=== PATIENT | female | born 1960 | race Caucasian/White ===

== ENCOUNTER 2018-05-07 20:32 | Inpatient (IN) | payer OTHER ==
[2018-05-07 21:32] VITALS: BMI 19.9
--- NOTE | 2018-05-07 21:55 | HP ---
"COWS - Scale Resting Pulse: 1= [place] 81-100 Sweatin=Flushed/Facial Moisture Restless Observation: 3= Extraneous Movement Pupil Size: 0= Normal to Room Light Bone or Joint Aches: 1= Mild Discomfort Runny Nose/ Eye Tearin= Runny Nose/Eyes GI Upset > 30mins: 2= Nausea/Diarrhea (No diarrhea. Having dry heaves) Tremor Observation: 2= Slight Tremor Visible Yawning Observation: 0= None Anxiety or Irritability: 2=Irritable/Anxious Goose Flesh Skin: 0=Smooth Skin COWS Score: 15 CIWA Score Nausea/Vomitin-Int. Nausea w/Dry Heave Muscle Tremors: 4-Moderate,w/Arms Extend Anxiety: 3 Agitation: 4-Moderately Restless Paroxysmal Sweats: 3 (Facial moisture) Orientation: 3-Disoriented Date>2 days Tacttile Disturbances: 0-None Auditory Disturbances: 0-None Visual Disturbances: 0-None Headache: 0-None Present CIWA-Ar Total Score: 21 - Admission Criteria [facility] Guidelines: Admission for Medically Managed Detox: Requires at least one of the followin. CIWA greater than 12 2. Seizures within the past 24 hours 3. Delirium tremens within the past 24 hours 4. Hallucinations within the past 24 hours 5. Acute intervention needed for co occurring medical disorder 6. Acute intervention needed for co occurring psychiatric disorder 7. Severe withdrawal that cannot be handled at a lower level of care (continued vomiting, continued diarrhea, abnormal vital signs) requiring intravenous medication and/or fluids 8. Admission ROS [facility] Chief Complaint: Here for heroin withdrawal. Allergies/Adverse Reactions: Allergies Allergy/AdvReac Type Severity Reaction Status Date / Time kiwi Allergy Severe Itching Verified 05/07/18 21:29 No Known Drug Allergies Allergy Verified 05/07/18 21:29 History of Present Illness: Heroin use began at age 35. States had an overdose 1 month ago. Cocaine use use began at age 35. Alcohol use began at age 18. Nicotine use began at age 18. Denies hx seizures or blackouts. 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 (See H&P) Hx asthma. States no exacerbation in years. Denies other significant PMH. States has had multiple treatment attempts. Search Terms: Leola Aguilera, 1960 Search Date: 05/07/2018 09:53:30 PM The Drug Utilization Report below displays all of the controlled substance prescriptions, if any, that your patient has filled in the last twelve months. The information displayed on this report is compiled from pharmacy submissions to the Department, and accurately reflects the information as submitted by the pharmacies. This report was requested by: Kaleigh Roberts | Reference #: [id number] There are no results for the search terms that you entered. Exam Limitations: No Limitations - Ebola screening Have you traveled outside of the country in the last 21 days: No Have you had contact with anyone from an Ebola affected area: No Have you been sick,other than usual withdrawal symptoms: No Do you have a fever: No - Review of Systems Constitutional: Diaphoresis EENT: reports: Nose Congestion (r/t withdrawal), Dental Problems (Upper and lower dentures) Respiratory: reports: No Symptoms reported, Other (Hx asthma. No recent exacerbation) Cardiac: reports: No Symptoms Reported GI: reports: Nausea (w/ dry heaves) : reports: No Symptoms Reported Musculoskeletal: reports: Muscle Weakness ((R) side), Other (Whole (R) side achy and some times sharp. Pain is '5'.) Integumentary: reports: No Symptoms Reported Neuro: reports: Tremors Endocrine: reports: No Symptoms Reported Hematology: reports: No Symptoms Reported Psychiatric: reports: Judgement Intact, Mood/Affect Appropiate, Agitated, Anxious, Depressed ( Search Terms: Leola Aguilera, 1960 Search Date: 2017 09:53:30 PM The Drug Utilization Report below displays all of the controlled substance prescriptions, if any, that your patient has filled in the last twelve months. The information displayed on this report is compiled from pharmacy submissions to the Department, and accurately reflects the information as submitted by the pharmacies. This report was requested by: Kaleigh Roberts | Reference #: [id number] Denies thoughts of harming self or others), Disorientated (Off date by 5 days) Patient History - Patient Medical History Hx Asthma: Yes (No recent exacerbation in over a year) Hx Chronic Obstructive Pulmonary Disease (COPD): Yes Hx Cardiac Disorders: No Hx Hypertension: No Hx Hypercholesterolemia: No Hx Pacemaker: No HX Cerebrovascular Accident: No Hx Seizures: No Hx Dementia: No Hx Diabetes: No Hx Gastrointestinal Disorders: No Hx Liver Disease: No Hx Genitourinary Disorders: No Hx Sexually Transmitted Disorders: No Hx Renal Disease (ESRD): No Hx Thyroid Disease: No Hx Human Immunodeficiency Virus (HIV): No (neg) Hx Hepatitis C: No Hx Depression: Yes Hx Suicide Attempt: Yes (Tried to overdose 20 yrs ago.) Hx Schizophrenia: No - Patient Surgical History Past Surgical History: Yes Hx Neurologic Surgery: Yes (NECK SX IN 10/10 [facility]) Hx Appendectomy: Yes Other Surgical History: L ovarian cyst sx Anesthesia Reaction: No - PPD History Previous Implant?: Yes Documented Results: Negative w/o proof Implanted On Prior [facility] Admission?: No PPD to be Administered?: Yes - Reproductive History Patient is a Female of Child Bearing Age (11 -55 yrs old): Yes Last Menstrual Period: 11/24/15 (approx) Patient : No (Not sexually active ) - Smoking Cessation Smoking history: Current every day smoker Have you smoked in the past 12 months: Yes Aproximately how many cigarettes per day: 20 Hx Chewing Tobacco Use: No Initiated information on smoking cessation: Yes 'Breaking Loose' booklet given: 05/07/18 - Substance & Tx. History Hx Alcohol Use: Yes Hx Substance Use: Yes Substance Use Type: Alcohol, Cocaine, Heroin, Marijuana Hx Substance Use Treatment: Yes (detox, rehab, past hx [facility]) - Substances Abused Heroin Route: Inhalation Frequency: Daily Amount used: 5 BAGS Age of first use: 35 Date of Last Use: 05/07/18 Alcohol Route: Oral Frequency: Daily Amount used: 1/2 [place] Age of first use: 18 Date of Last Use: 05/06/18 Crack Route: Smoking Frequency: Daily Amount used: $100 Age of first use: 35 Date of Last Use: 05/07/18 Admission Physical Exam BHS - Vital Signs Vital Signs: Vital Signs - 24 hr 05/07/18 21:29 Temperature 97.5 F L Pulse Rate 91 H Respiratory 20 Rate Blood Pressure 105/70 - Physical General Appearance: Yes: Moderate Distress, Tremorous, Sweating, Anxious HEENTM: Yes: EOMI, Hearing grossly Normal, Normocephalic, LARISSA (Pupils = 3 mm), Pharynx Normal, Rhinorrhea Respiratory: Yes: Chest Non-Tender, Lungs Clear Neck: Yes: No masses,lesions,Nodules, Supple Breast: Yes: Breast Exam Deferred Cardiology: Yes: Regular Rhythm, Regular Rate, S1, S2 Abdominal: Yes: Non Tender, Flat, Soft, Increased Bowel Sounds Genitourinary: Yes: Within Normal Limits Back: Yes: Normal Inspection Musculoskeletal: Yes: Joint Stiffness ((R) shoulder, elbow, wrist, fingers. Limited ROM (R) shoulder), Other (Unsteady gait.) Extremities: Yes: Normal Capillary Refill, Tremors (of hands when extended), Other ((R) side paresis and paralysis of arm w/artial contractures of elbow and fingers. Paresis (R) leg. 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 See H & P. (2) Alcohol dependence with uncomplicated withdrawal Current Visit: Yes Status: Acute (3) Opioid dependence with withdrawal Current Visit: Yes Status: Acute (4) Personal history of asthma Current Visit: Yes Status: Chronic (5) Nicotine dependence, uncomplicated Current Visit: Yes Status: Chronic Qualifiers: Nicotine product type: cigarettes Qualified Code(s): F17.210 - Nicotine dependence, cigarettes, uncomplicated (6) Cocaine dependence, uncomplicated Current Visit: Yes Status: Chronic Cleared for Admission [facility] - Detox or Rehab [facility] Level of Care: Medically Managed Detox Regimen/Protocol: Methadone/Librium [facility] Breath Alcohol Content Breath Alcohol Content: 0 Urine Pregancy Test - Result Urine Test Results: Negative- NO Line Present Urine Drug Screen - Results Drug Screen Negative: Yes Urine Drug Screen Results: THC-Marijuana, PAULA-Cocaine, OPI-Opiates, MTD- Methadone, OXY-Oxycodone, FEN-Fentanyl"
[2018-05-07] MEDS ORDERED: IBUPROFEN 400 MG TABLET (FP) PO PRN (22:30)
[2018-05-07] MEDS ORDERED: MAG HYDROX/AL HYDROX/SIMETH 30 ML UNIT-DOSE CUP PO PRN (22:30)
[2018-05-07] MEDS ORDERED: MAGNESIUM CITRATE 300 ML BOTTLE PO PRN (22:30)
[2018-05-07] MEDS ORDERED: MAGNESIUM HYDROX 2400MG/30ML ORAL SUSPENSION 30 ML CUP PO PRN (22:30)
[2018-05-07] MEDS ORDERED: MENTHOL/PHENOL 1 EACH UD MM PRN (22:30)
[2018-05-07] MEDS ORDERED: ACETAMINOPHEN 325 MG TABLET (FP) PO PRN (22:30)
[2018-05-07] MEDS ORDERED: chlordiazePOXIDE HCL 25 MG CAPSULE PO PRN (22:30)
[2018-05-07] MEDS ORDERED: NICOTINE POLACRILEX 2 MG GUM BC PRN (22:30)
[2018-05-07] MEDS ORDERED: LOPERAMIDE HCL 2 MG CAPSULE PO PRN (22:30)
[2018-05-07] MEDS ORDERED: METHADONE HCL 10 MG TABLET (FOR DETOX USE ONLY) PO ONE ×2 (23:00→23:15)
[2018-05-07] MEDS ORDERED: chlordiazePOXIDE HCL 25 MG CAPSULE PO SCH (23:00)
[2018-05-07] MEDS ORDERED: chlordiazePOXIDE 5 MG CAPSULE PO PRN (23:01)
[2018-05-08 00:51] LABS: URINE APPEARANCE CLEAR; URINE BILIRUBIN NEGATIVE (<2.0 mg/dL); URINE COLOR YELLOW; URINE GLUCOSE (UA) NEGATIVE (NEGATIVE); URINE KETONE NEGATIVE (NEGATIVE); URINE LEUK ESTERASE TRACE (NEGATIVE); URINE NITRITE NEGATIVE (NEGATIVE); URINE PROTEIN 1+ (NEGATIVE)
[2018-05-08 02:31] LABS: EPI CELLS RARE /HPF (FEW); URINE HYALINE CAST 14 /lpf; URINE MUCUS MANY
[2018-05-08] MEDS: chlordiazePOXIDE HCL 25 MG CAPSULE PO SCH ×3 (05:56→17:53)
[2018-05-08] MEDS ORDERED: METHADONE HCL 10 MG TABLET (FOR DETOX USE ONLY) PO SCH (10:00)
[2018-05-08 10:10] LABS: MCH 28.5 pg (25.7-33.7); MCHC 31.8 g/dl (32.0-36.0); MEAN CELL VOLUME 89.7 fl (80-96); MEAN PLT VOLUME 10.4 fl (7.5-11.1); PLATELET COUNT 189 K/MM3 (134-434); RBC 4.57 M/mm3 (3.60-5.2); RDW 14.2 % (11.6-15.6); WHITE BLOOD COUNT 7.5 K/mm3 (4.0-10.0)
[2018-05-08] MEDS: PRENATAL VITAMINS W/ FOLIC ACID TABLET (FP) PO SCH (10:25)
[2018-05-08] MEDS: NICOTINE 21 MG/24 HOURS TOPICAL PATCH TD SCH (10:26)
[2018-05-08 10:37] LABS: ALK PHOS 86 U/L (45-117); ANION GAP 8 MMOL/L (8-16); BILIRUBIN,TOTAL 0.4 mg/dL (0.2-1); BLOOD UREA NITROGEN 18 mg/dL (7-18); CALCIUM 8.7 mg/dL (8.5-10.1); CHLORIDE 105 mmol/L (98-107); CO2 27 mmol/L (21-32); CREATININE 0.6 mg/dL (0.55-1.3); GLUCOSE,RANDOM 77 mg/dL (74-106); POTASSIUM 4.4 mmol/L (3.5-5.1); SGOT/AST 19 U/L (15-37); SGPT/ALT 16 U/L (13-61); SODIUM 140 mmol/L (136-145); TOT PROT 8.2 g/dl (6.4-8.2)
--- NOTE | 2018-05-08 11:37 | EKG ---
Test Reason : Blood Pressure : / mmHG Vent. Rate : 068 BPM Atrial Rate : 068 BPM P-R Int : 126 ms QRS Dur : 072 ms QT Int : 386 ms P-R-T Axes : 044 070 051 degrees QTc Int : 410 ms NORMAL SINUS RHYTHM NORMAL ECG NO PREVIOUS ECGS AVAILABLE Confirmed by STEFAN BAEZ, ALLEN ([id number]) on 05/08/2018 11:36:32 AM Referred By: JEANNINE FREEDMAN Confirmed By:ALLEN AVILES MD
--- NOTE | 2018-05-08 12:12 | PN ---
S CIWA - CIWA Score Nausea/Vomitin-No Nausea/No Vomiting Muscle Tremors: 4-Moderate,w/Arms Extend Anxiety: 3 Agitation: 3 Paroxysmal Sweats: 3 Orientation: 0-Oriented Tacttile Disturbances: 0-None Auditory Disturbances: 0-None Visual Disturbances: 0-None Headache: 0-None Present CIWA-Ar Total Score: 13 BHS COWS - Scale Resting Pulse: 1= [place] 81-100 Sweatin=Flushed/Facial Moisture Restless Observation: 1= Difficult to Sit Still Pupil Size: 0= Normal to Room Light Bone or Joint Aches: 2= Severe Diffuse Aches Runny Nose/ Eye Tearin= Nasal Congestion GI Upset > 30mins: 1= Stomach Cramp Tremor Observation of Outstretched Hands: 2= Slight Tremor Visible Yawning Observation: 2= >3x During Session Anxiety or Irritability: 2=Irritable/Anxious Goose Flesh Skin: 0=Smooth Skin COWS Score: 14 BHS Progress Note (SOAP) Subjective: agitation anxiety sweats shakes interrupted sleep body aches interrupted sleep Objective: 05/08/18 12:15 Vital Signs Temperature 98.2 F 05/08/18 10:06 Pulse Rate 93 H 05/08/18 10:06 Respiratory Rate 16 05/08/18 10:06 Blood Pressure 103/60 05/08/18 10:06 O2 Sat by Pulse Oximetry (%) Laboratory Tests 05/07/18 05/08/18 05/08/18 23:16 07:00 07:00 WBC 7.5 RBC 4.57 Hgb 13.0 Hct 41.0 MCV 89.7 MCH 28.5 MCHC 31.8 L RDW 14.2 Plt Count 189 MPV 10.4 Sodium Potassium Chloride Carbon Dioxide Anion Gap BUN Creatinine Creat Clearance w eGFR Random Glucose Calcium Total Bilirubin AST ALT Alkaline Phosphatase Total Protein Albumin Urine Color Yellow Urine Appearance Clear Urine pH 5.0 Ur Specific [place] 1.026 Urine Protein 1+ H Urine Glucose (UA) Negative Urine Ketones Negative Urine Blood 1+ H Urine Nitrite Negative Urine Bilirubin Negative Urine Urobilinogen 2.0 H Ur Leukocyte Esterase Trace Urine WBC (Auto) 3 Urine RBC (Auto) 3 Ur Epithelial Cells Rare Hyaline Casts 14 Urine Mucus Many HIV 1&2 Antibody Screen Negative HIV P24 Antigen Negative 05/08/18 07:00 WBC RBC Hgb Hct MCV MCH MCHC RDW Plt Count MPV Sodium 140 Potassium 4.4 Chloride 105 Carbon Dioxide 27 Anion Gap 8 BUN 18 Creatinine 0.6 Creat Clearance w eGFR > 60 Random Glucose 77 Calcium 8.7 Total Bilirubin 0.4 AST 19 ALT 16 Alkaline Phosphatase 86 Total Protein 8.2 Albumin 4.0 Urine Color Urine Appearance Urine pH Ur Specific [place] Urine Protein Urine Glucose (UA) Urine Ketones Urine Blood Urine Nitrite Urine Bilirubin Urine Urobilinogen Ur Leukocyte Esterase Urine WBC (Auto) Urine RBC (Auto) Ur Epithelial Cells Hyaline Casts Urine Mucus HIV 1&2 Antibody Screen HIV P24 Antigen aaox3 ambulating no acute distress Assessment: 05/08/18 12:15 withdrawal sx Plan: continue detox increase fluids cane ordered
[2018-05-08] MEDS: THIAMINE HCL 100 MG TABLET (FP) PO SCH (22:10)
[2018-05-08] MEDS: chlordiazePOXIDE 5 MG CAPSULE PO SCH (22:10)
[2018-05-08] MEDS: CYCLOBENZAPRINE HCL 10 MG TABLET (FP) PO PRN (22:10)
[2018-05-08] MEDS: MELATONIN 5 MG TABLETS PO PRN (22:11)
[2018-05-08] MEDS ORDERED: chlordiazePOXIDE HCL 25 MG CAPSULE PO SCH (23:00)
[2018-05-09] MEDS: chlordiazePOXIDE 5 MG CAPSULE PO SCH ×4 (06:19→23:23)
[2018-05-09] MEDS: CYCLOBENZAPRINE HCL 10 MG TABLET (FP) PO PRN (06:22)
[2018-05-09] MEDS: PRENATAL VITAMINS W/ FOLIC ACID TABLET (FP) PO SCH (10:59)
[2018-05-09] MEDS: METHADONE HCL 5 MG TABLET (FOR DETOX USE ONLY) PO SCH (10:59)
[2018-05-09] MEDS: NICOTINE 21 MG/24 HOURS TOPICAL PATCH TD SCH (11:00)
--- NOTE | 2018-05-09 11:58 | PN ---
[facility] CIWA - CIWA Score Nausea/Vomitin-No Nausea/No Vomiting Muscle Tremors: 3 Anxiety: 3 Agitation: 3 Paroxysmal Sweats: 2 Orientation: 0-Oriented Tacttile Disturbances: 0-None Auditory Disturbances: 0-None Visual Disturbances: 0-None Headache: 0-None Present CIWA-Ar Total Score: 11 BHS COWS - Scale Resting Pulse: 0= [place] 80 or Below Sweatin=Flushed/Facial Moisture Restless Observation: 1= Difficult to Sit Still Pupil Size: 0= Normal to Room Light Bone or Joint Aches: 1= Mild Discomfort Runny Nose/ Eye Tearin= Nasal Congestion GI Upset > 30mins: 0= None Tremor Observation of Outstretched Hands: 2= Slight Tremor Visible Yawning Observation: 2= >3x During Session Anxiety or Irritability: 1=Feels Anxious/Irritable Goose Flesh Skin: 0=Smooth Skin COWS Score: 10 S Progress Note (SOAP) Subjective: agitation anxiety sweats interrupted sleep Objective: 05/09/18 11:58 Vital Signs Temperature 98.8 F 05/09/18 09:38 Pulse Rate 90 05/09/18 09:38 Respiratory Rate 18 05/09/18 09:38 Blood Pressure 128/92 05/09/18 09:38 O2 Sat by Pulse Oximetry (%) Laboratory Tests 05/07/18 05/08/18 05/08/18 23:16 07:00 07:00 WBC 7.5 RBC 4.57 Hgb 13.0 Hct 41.0 MCV 89.7 MCH 28.5 MCHC 31.8 L RDW 14.2 Plt Count 189 MPV 10.4 Sodium Potassium Chloride Carbon Dioxide Anion Gap BUN Creatinine Creat Clearance w eGFR Random Glucose Calcium Total Bilirubin AST ALT Alkaline Phosphatase Total Protein Albumin Urine Color Yellow Urine Appearance Clear Urine pH 5.0 Ur Specific [place] 1.026 Urine Protein 1+ H Urine Glucose (UA) Negative Urine Ketones Negative Urine Blood 1+ H Urine Nitrite Negative Urine Bilirubin Negative Urine Urobilinogen 2.0 H Ur Leukocyte Esterase Trace Urine WBC (Auto) 3 Urine RBC (Auto) 3 Ur Epithelial Cells Rare Hyaline Casts 14 Urine Mucus Many RPR Titer HIV 1&2 Antibody Screen Negative HIV P24 Antigen Negative 05/08/18 05/08/18 07:00 07:00 WBC RBC Hgb Hct MCV MCH MCHC RDW Plt Count MPV Sodium 140 Potassium 4.4 Chloride 105 Carbon Dioxide 27 Anion Gap 8 BUN 18 Creatinine 0.6 Creat Clearance w eGFR > 60 Random Glucose 77 Calcium 8.7 Total Bilirubin 0.4 AST 19 ALT 16 Alkaline Phosphatase 86 Total Protein 8.2 Albumin 4.0 Urine Color Urine Appearance Urine pH Ur Specific [place] Urine Protein Urine Glucose (UA) Urine Ketones Urine Blood Urine Nitrite Urine Bilirubin Urine Urobilinogen Ur Leukocyte Esterase Urine WBC (Auto) Urine RBC (Auto) Ur Epithelial Cells Hyaline Casts Urine Mucus RPR Titer Nonreactive HIV 1&2 Antibody Screen HIV P24 Antigen aaox3 ambulating no acute distress Assessment: 05/09/18 11:59 withdrawals sx Plan: continue detox increase fluids
[2018-05-09] MEDS ORDERED: chlordiazePOXIDE 5 MG CAPSULE PO SCH (23:00)
[2018-05-09] MEDS: THIAMINE HCL 100 MG TABLET (FP) PO SCH (23:23)
[2018-05-10] MEDS: chlordiazePOXIDE 5 MG CAPSULE PO SCH ×4 (06:13→22:53)
[2018-05-10] MEDS: CYCLOBENZAPRINE HCL 10 MG TABLET (FP) PO PRN ×3 (06:15→22:53)
[2018-05-10] MEDS: PRENATAL VITAMINS W/ FOLIC ACID TABLET (FP) PO SCH (10:38)
[2018-05-10] MEDS: METHADONE HCL 5 MG TABLET (FOR DETOX USE ONLY) PO SCH (10:38)
[2018-05-10] MEDS: NICOTINE 21 MG/24 HOURS TOPICAL PATCH TD SCH (10:39)
--- NOTE | 2018-05-10 12:09 | PN ---
BHS Progress Note (SOAP) Subjective: sweats feeling better Objective: 05/10/18 12:12 Vital Signs Temperature 97.7 F 05/10/18 09:43 Pulse Rate 77 05/10/18 09:43 Respiratory Rate 18 05/10/18 09:43 Blood Pressure 102/59 L 05/10/18 09:43 O2 Sat by Pulse Oximetry (%) aaox3 ambulating no acute distress Assessment: 05/10/18 12:12 mild withdrawal sx Plan: increase fluids continue detox
[2018-05-10] MEDS: THIAMINE HCL 100 MG TABLET (FP) PO SCH (22:53)
[2018-05-10] MEDS ORDERED: chlordiazePOXIDE HCL 10 MG CAPSULE PO SCH (23:00)
[2018-05-11] MEDS: chlordiazePOXIDE 5 MG CAPSULE PO SCH ×3 (05:26→18:13)
[2018-05-11] MEDS ORDERED: METHADONE HCL 10 MG TABLET (FOR DETOX USE ONLY) PO SCH (10:00)
[2018-05-11] MEDS: PRENATAL VITAMINS W/ FOLIC ACID TABLET (FP) PO SCH (10:48)
[2018-05-11] MEDS: NICOTINE 21 MG/24 HOURS TOPICAL PATCH TD SCH (10:49)
[2018-05-11] MEDS: CYCLOBENZAPRINE HCL 10 MG TABLET (FP) PO PRN ×2 (10:52→22:29)
--- NOTE | 2018-05-11 12:49 | PN ---
BHS Progress Note (SOAP) Subjective: Interrupted sleep, mild sweats and tremors Objective: 05/11/18 12:48 Vital Signs 05/11/18 05/11/18 06:00 09:40 Temperature 97.9 F 97.9 F Pulse Rate 77 85 Respiratory 16 18 Rate Blood Pressure 140/85 134/87 Laboratory Last Values WBC 7.5 K/mm3 (4.0-10.0) 05/08/18 07:00 RBC 4.57 M/mm3 (3.60-5.2) 05/08/18 07:00 Hgb 13.0 GM/dL (10.7-15.3) 05/08/18 07:00 Hct 41.0 % (32.4-45.2) 05/08/18 07:00 MCV 89.7 fl (80-96) 05/08/18 07:00 MCH 28.5 pg (25.7-33.7) 05/08/18 07:00 MCHC 31.8 g/dl (32.0-36.0) L 05/08/18 07:00 RDW 14.2 % (11.6-15.6) 05/08/18 07:00 Plt Count 189 K/MM3 (134-434) 05/08/18 07:00 MPV 10.4 fl (7.5-11.1) 05/08/18 07:00 Sodium 140 mmol/L (136-145) 05/08/18 07:00 Potassium 4.4 mmol/L (3.5-5.1) 05/08/18 07:00 Chloride 105 mmol/L (98-107) 05/08/18 07:00 Carbon Dioxide 27 mmol/L (21-32) 05/08/18 07:00 Anion Gap 8 MMOL/L (8-16) 05/08/18 07:00 BUN 18 mg/dL (7-18) 05/08/18 07:00 Creatinine 0.6 mg/dL (0.55-1.3) 05/08/18 07:00 Creat Clearance w eGFR > 60 (>60) 05/08/18 07:00 Random Glucose 77 mg/dL (74-106) 05/08/18 07:00 Calcium 8.7 mg/dL (8.5-10.1) 05/08/18 07:00 Total Bilirubin 0.4 mg/dL (0.2-1) 05/08/18 07:00 AST 19 U/L (15-37) 05/08/18 07:00 ALT 16 U/L (13-61) 05/08/18 07:00 Alkaline Phosphatase 86 U/L (45-117) 05/08/18 07:00 Total Protein 8.2 g/dl (6.4-8.2) 05/08/18 07:00 Albumin 4.0 g/dl (3.4-5.0) 05/08/18 07:00 Urine Color Yellow 05/07/18 23:16 Urine Appearance Clear 05/07/18 23:16 Urine pH 5.0 (5.0-8.0) 05/07/18 23:16 Ur Specific [place] 1.026 (1.010-1.035) 05/07/18 23:16 Urine Protein 1+ (NEGATIVE) H 05/07/18 23:16 Urine Glucose (UA) Negative (NEGATIVE) 05/07/18 23:16 Urine Ketones Negative (NEGATIVE) 05/07/18 23:16 Urine Blood 1+ (NEGATIVE) H 05/07/18 23:16 Urine Nitrite Negative (NEGATIVE) 05/07/18 23:16 Urine Bilirubin Negative (<2.0 mg/dL) 05/07/18 23:16 Urine Urobilinogen 2.0 mg/dL (0.2-1.0) H 05/07/18 23:16 Ur Leukocyte Esterase Trace (NEGATIVE) 05/07/18 23:16 Urine WBC (Auto) 3 /hpf (3-5) 05/07/18 23:16 Urine RBC (Auto) 3 /hpf (0-3) 05/07/18 23:16 Ur Epithelial Cells Rare /HPF (FEW) 05/07/18 23:16 Hyaline Casts 14 /lpf 05/07/18 23:16 Urine Mucus Many 05/07/18 23:16 RPR Titer Nonreactive (NONREACTIVE) 05/08/18 07:00 HIV 1&2 Antibody Screen Negative 05/08/18 07:00 HIV P24 Antigen Negative 05/08/18 07:00 Labs noted Assessment: 05/11/18 12:49 Withdrawal sx Plan: Continue detox
[2018-05-11] MEDS: THIAMINE HCL 100 MG TABLET (FP) PO SCH (22:28)
[2018-05-11] MEDS: MELATONIN 5 MG TABLETS PO PRN (22:29)
[2018-05-12] MEDS: CYCLOBENZAPRINE HCL 10 MG TABLET (FP) PO PRN (05:54)
[2018-05-12] MEDS ORDERED: METHADONE HCL 5 MG TABLET (FOR DETOX USE ONLY) PO SCH (06:00)
--- NOTE | 2018-05-12 09:23 | DS ---
[facility] Detox Discharge Summary Admission Date: 05/07/18 Discharge Date: 05/12/18 - History Present History: Alcohol Dependence, Opioid Dependence Additional Comments: 57 years old female admitted on 05/07/18 for alcohol and opiate withdrawal sx completed detox regimen tolerated well denies alcohol withdrawal denies opiate withdrawal sx alert oriented x 3 tolerated well aftercare [facility] Physical Exam Results Vital Signs: Vital Signs Temperature 97.7 F 05/12/18 06:00 Pulse Rate 88 05/12/18 06:00 Respiratory Rate 16 05/12/18 06:00 Blood Pressure 112/60 05/12/18 06:00 O2 Sat by Pulse Oximetry (%) Pertinent Admission Physical Exam Findings: alcohol and opiate withdrawal sx Vital Signs Temperature 97.7 F 05/12/18 06:00 Pulse Rate 88 05/12/18 06:00 Respiratory Rate 16 05/12/18 06:00 Blood Pressure 112/60 05/12/18 06:00 O2 Sat by Pulse Oximetry (%) Laboratory Last Values WBC 7.5 K/mm3 (4.0-10.0) 05/08/18 07:00 RBC 4.57 M/mm3 (3.60-5.2) 05/08/18 07:00 Hgb 13.0 GM/dL (10.7-15.3) 05/08/18 07:00 Hct 41.0 % (32.4-45.2) 05/08/18 07:00 MCV 89.7 fl (80-96) 05/08/18 07:00 MCH 28.5 pg (25.7-33.7) 05/08/18 07:00 MCHC 31.8 g/dl (32.0-36.0) L 05/08/18 07:00 RDW 14.2 % (11.6-15.6) 05/08/18 07:00 Plt Count 189 K/MM3 (134-434) 05/08/18 07:00 MPV 10.4 fl (7.5-11.1) 05/08/18 07:00 Sodium 140 mmol/L (136-145) 05/08/18 07:00 Potassium 4.4 mmol/L (3.5-5.1) 05/08/18 07:00 Chloride 105 mmol/L (98-107) 05/08/18 07:00 Carbon Dioxide 27 mmol/L (21-32) 05/08/18 07:00 Anion Gap 8 MMOL/L (8-16) 05/08/18 07:00 BUN 18 mg/dL (7-18) 05/08/18 07:00 Creatinine 0.6 mg/dL (0.55-1.3) 05/08/18 07:00 Creat Clearance w eGFR > 60 (>60) 05/08/18 07:00 Random Glucose 77 mg/dL (74-106) 05/08/18 07:00 Calcium 8.7 mg/dL (8.5-10.1) 05/08/18 07:00 Total Bilirubin 0.4 mg/dL (0.2-1) 05/08/18 07:00 AST 19 U/L (15-37) 05/08/18 07:00 ALT 16 U/L (13-61) 05/08/18 07:00 Alkaline Phosphatase 86 U/L (45-117) 05/08/18 07:00 Total Protein 8.2 g/dl (6.4-8.2) 05/08/18 07:00 Albumin 4.0 g/dl (3.4-5.0) 05/08/18 07:00 Urine Color Yellow 05/07/18 23:16 Urine Appearance Clear 05/07/18 23:16 Urine pH 5.0 (5.0-8.0) 05/07/18 23:16 Ur Specific [place] 1.026 (1.010-1.035) 05/07/18 23:16 Urine Protein 1+ (NEGATIVE) H 05/07/18 23:16 Urine Glucose (UA) Negative (NEGATIVE) 05/07/18 23:16 Urine Ketones Negative (NEGATIVE) 05/07/18 23:16 Urine Blood 1+ (NEGATIVE) H 05/07/18 23:16 Urine Nitrite Negative (NEGATIVE) 05/07/18 23:16 Urine Bilirubin Negative (<2.0 mg/dL) 05/07/18 23:16 Urine Urobilinogen 2.0 mg/dL (0.2-1.0) H 05/07/18 23:16 Ur Leukocyte Esterase Trace (NEGATIVE) 05/07/18 23:16 Urine WBC (Auto) 3 /hpf (3-5) 05/07/18 23:16 Urine RBC (Auto) 3 /hpf (0-3) 05/07/18 23:16 Ur Epithelial Cells Rare /HPF (FEW) 05/07/18 23:16 Hyaline Casts 14 /lpf 05/07/18 23:16 Urine Mucus Many 05/07/18 23:16 RPR Titer Nonreactive (NONREACTIVE) 05/08/18 07:00 HIV 1&2 Antibody Screen Negative 05/08/18 07:00 HIV P24 Antigen Negative 05/08/18 07:00 lab noted - Treatment Hospital Course: Detox Protocol Followed, Detoxed Safely, Responded well, Discharged Condition Good, Rehab Referral Accepted Patient has Accepted a Rehab Referral to: [facility] - Diagnosis (1) Alcohol dependence with uncomplicated withdrawal Current Visit: Yes Status: Acute (2) Nicotine dependence, uncomplicated Current Visit: Yes Status: Acute Qualifiers: Nicotine product type: cigarettes Qualified Code(s): F17.210 - Nicotine dependence, cigarettes, uncomplicated (3) Opioid dependence with withdrawal Current Visit: Yes Status: Acute - AMA Did Patient Leave Against Medical Advice: No
[2018-05-12 10:21] VITALS: BP 127/83; PULSE 87; TEMP 98
[2018-05-12] MEDS: PRENATAL VITAMINS W/ FOLIC ACID TABLET (FP) PO SCH (10:31)
[2018-05-12] MEDS: NICOTINE 21 MG/24 HOURS TOPICAL PATCH TD SCH (10:31)
== END 2018-05-12 12:33 | disposition other institution (70) | DRG 773 ==
LOC: YASAS 20:32 → Y6N 22:44
PROC: HZ2ZZZZ Detoxification Services for Substance Abuse Treatment (ICD-10-PCS; principal; 2018-05-07)
DX: F11.23 Opioid dependence with withdrawal (principal); F10.230 Alcohol dependence with withdrawal, uncomplicated; F14.20 Cocaine dependence, uncomplicated; F17.210 Nicotine dependence, cigarettes, uncomplicated; M24.50 Contracture, unspecified joint; A52.17 General paresis; Z87.09 Personal history of other diseases of the respiratory system
CPT/HCPCS: 36415; 80053; 81003; 81015; 85027; 86593; 87389; 93005; 93010

== ENCOUNTER 2018-05-12 12:52 | Inpatient (IN) | payer OTHER ==
--- NOTE | 2018-05-12 09:43 | HP ---
RAKAN BAEZ Rehab Assess/Revision - Admission History Admitted to Rehab from: [place] [facility] [place] Date of Admission to Rehab: 05/12/18 - Findings Detox History & Physical reviewed: Yes Concur with findings: Yes Comments/Additional Findings: transferred from detox to rehab admission as per protocol Inpatient Rehab Admission - Initial Determination Are CD services needed?: Yes Free of communicable disease: Yes Not in need of hospitalization: Yes - Rehab Admission Criteria Previous failed treatment: Yes Poor recovery environment: Yes Comorbidities: Yes Lacks judgement: No Patient is meeting Inpatient Rehab admission criteria:: Yes
[~2018-05-12 12:52] MED LIST: ACETAMINOPHEN 325 MG TABLET (FP) PO PRN; IBUPROFEN 400 MG TABLET (FP) PO PRN; LOPERAMIDE HCL 2 MG CAPSULE PO PRN; MAG HYDROX/AL HYDROX/SIMETH 30 ML UNIT-DOSE CUP PO PRN; MAGNESIUM CITRATE 300 ML BOTTLE PO PRN; MAGNESIUM HYDROX 2400MG/30ML ORAL SUSPENSION 30 ML CUP PO PRN; MENTHOL/PHENOL 1 EACH UD MM PRN; NICOTINE 14 MG/24 HOURS TOPICAL PATCH TD PRN; NICOTINE POLACRILEX 2 MG GUM BUC PRN; P-EPHED 60MG/TRIPROLIDI 2.5MG TABLET PO PRN; guaiFENesin/D-METHORPHAN HB 10 ML UNIT-DOSE CUPS PO PRN
[2018-05-12 14:00] VITALS: BMI 19.9
[2018-05-12] MEDS ORDERED: CLOTRIMAZOLE 10 MG TROCHE (FP) PO SCH (14:00)
[2018-05-12] MEDS: PRENATAL VITAMINS W/ FOLIC ACID TABLET (FP) PO SCH (14:21)
[2018-05-12] MEDS ORDERED: MELATONIN 5 MG TABLETS PO PRN (22:00)
[2018-05-12] MEDS ORDERED: THIAMINE HCL 100 MG TABLET (FP) PO SCH (22:00)
[2018-05-13 06:57] VITALS: BP 119/88; PULSE 103; TEMP 97.3
[2018-05-13] MEDS ORDERED: FLUTICASONE PROP 0.05% 16 GM NASAL SPRAY NS SCH (10:00)
[2018-05-13] MEDS: PRENATAL VITAMINS W/ FOLIC ACID TABLET (FP) PO SCH (10:58)
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
[2018-05-13] MEDS ORDERED: CYCLOBENZAPRINE HCL 10 MG TABLET (FP) PO PRN (13:42)
--- NOTE | 2018-05-13 15:42 | PN ---
[facility] Progress Note Note: CALL FROM NURSE CALVERT STATING THAT THIS PATIENT WANTS TO SIGN OUT AMA FOR PERSONAL REASONS. THIS PROVIDER WAS UNABLE TO ENCOUNTER WITH THIS PATIENT BEFORE SHE LEFT TREATMENT. Vital Signs - 24 hr 05/13/18 05/13/18 05/13/18 00:30 03:30 06:56 Temperature 97.3 F L Pulse Rate 103 H Respiratory 18 18 20 Rate Blood Pressure 119/88 PT SIGNED OUT AMA.
[2018-05-13] MEDS ORDERED: SUVOREXANT 10 MG TABLET PO PRN (22:00)
== END 2018-05-13 13:03 | disposition left against medical advice (07) | DRG 770 ==
LOC: YASAS 12:52 → Y3W 12:53
PROVIDERS: ADMIT Psychiatry & Neurology Psychiatry; ATTEND Psychiatry & Neurology Psychiatry
PROC: HZ2ZZZZ Detoxification Services for Substance Abuse Treatment (ICD-10-PCS; principal; 2018-05-12)
DX: F11.20 Opioid dependence, uncomplicated (principal); F10.20 Alcohol dependence, uncomplicated; F14.20 Cocaine dependence, uncomplicated; F17.210 Nicotine dependence, cigarettes, uncomplicated; F33.9 Major depressive disorder, recurrent, unspecified; F39 Unspecified mood [affective] disorder; F41.9 Anxiety disorder, unspecified; F90.9 Attention-deficit hyperactivity disorder, unspecified type; A52.17 General paresis; Z87.09 Personal history of other diseases of the respiratory system; R20.2 Paresthesia of skin; M24.50 Contracture, unspecified joint

== ENCOUNTER 2019-03-04 13:08 | Inpatient (IN) | payer OTHER ==
[2019-03-04 17:02] VITALS: BMI 21.4
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
[2019-03-04] MEDS ORDERED: hydrOXYzine PAMOATE 25 MG CAPSULE (FP) PO PRN (18:18)
[2019-03-04] MEDS ORDERED: MAGNESIUM CITRATE 300 ML BOTTLE PO PRN (18:18)
[2019-03-04] MEDS ORDERED: MENTHOL/PHENOL 1 EACH UD MM PRN (18:18)
[2019-03-04] MEDS ORDERED: MAGNESIUM HYDROX 2400MG/30ML ORAL SUSPENSION 30 ML CUP PO PRN (18:18)
[2019-03-04] MEDS ORDERED: MELATONIN 5 MG TABLETS PO PRN (18:18)
[2019-03-04] MEDS ORDERED: ACETAMINOPHEN 325 MG TABLET (FP) PO PRN ×2 (18:18)
[2019-03-04] MEDS ORDERED: BISMUTH SUBSALICYLATE 524 MG/30 ML UD PO PRN (18:18)
[2019-03-04] MEDS ORDERED: IBUPROFEN 400 MG TABLET (FP) PO PRN (18:18)
[2019-03-04] MEDS ORDERED: MAG HYDROX/AL HYDROX/SIMETH 30 ML UNIT-DOSE CUP PO PRN (18:18)
[2019-03-04] MEDS ORDERED: cloNIDine HCL 0.1 MG TABLET PO PRN (18:21)
[2019-03-04] MEDS ORDERED: diazePAM 5 MG TABLET PO PRN (18:22)
[2019-03-04] MEDS ORDERED: METHADONE HCL 10 MG TABLET (FOR DETOX USE ONLY) PO ONE (19:15)
[2019-03-04] MEDS: diazePAM 5 MG TABLET PO SCH (22:10)
[2019-03-04] MEDS: THIAMINE HCL 100 MG TABLET (FP) PO SCH (22:10)
[2019-03-05] MEDS: diazePAM 5 MG TABLET PO SCH ×3 (05:25→21:34)
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
--- NOTE | 2019-03-05 09:01 | PN ---
S CIWA - CIWA Score Nausea/Vomitin-Mild Nausea/No Vomiting Muscle Tremors: 2 Anxiety: 3 Agitation: 2 Paroxysmal Sweats: 1-Minimal Palms Moist Orientation: 0-Oriented Tacttile Disturbances: 1-Very Mild Itch/Numbness Auditory Disturbances: 0-None Visual Disturbances: 0-None Headache: 2-Mild CIWA-Ar Total Score: 12 [facility] COWS - Scale Resting Pulse: 1= [place] 81-100 Sweatin= Chills/Flushing Restless Observation: 1= Difficult to Sit Still Pupil Size: 1= Pupils >than Normal Bone or Joint Aches: 1= Mild Discomfort Runny Nose/ Eye Tearin= Nasal Congestion GI Upset > 30mins: 2= Nausea/Diarrhea Tremor Observation of Outstretched Hands: 1= Tremor [place], Not Seen Yawning Observation: 1= 1-2x During Session Anxiety or Irritability: 2=Irritable/Anxious Goose Flesh Skin: 0=Smooth Skin COWS Score: 12 [facility] Progress Note (SOAP) Subjective: alert,irritable,anxious,interrupted sleep,tremor,pain in the body and back Objective: 03/05/19 08:59 Vital Signs Temperature 98.2 F 03/05/19 07:15 Pulse Rate 84 03/05/19 07:15 Respiratory Rate 18 03/05/19 07:15 Blood Pressure 127/84 03/05/19 07:15 O2 Sat by Pulse Oximetry (%) 03/05/19 09:00 labs pending Assessment: 03/05/19 09:00 withdrawal symptom Plan: continue detox methadone and valium regimen
[2019-03-05] MEDS ORDERED: METHADONE HCL 5 MG TABLET (FOR DETOX USE ONLY) PO ONE (10:00)
[2019-03-05] MEDS ORDERED: PNEUMOC 13-VAL CONJ-DIP CRM/PF 0.5 ML DISP.SYRIN IM ONE (10:00)
[2019-03-05] MEDS: PRENATAL VITAMINS W/ FOLIC ACID TABLET (FP) PO SCH (10:51)
[2019-03-05] MEDS ORDERED: PNEUMOCOCCAL 23 VACCINE 0.5 ML VIAL IM ONE (12:00)
[2019-03-05 12:35] LABS: HEMATOCRIT 41.3 % (32.4-45.2); HEMOGLOBIN 13.2 GM/dL (10.7-15.3); MCH 29.9 pg (25.7-33.7); MCHC 31.9 g/dl (32.0-36.0); MEAN PLT VOLUME 10.4 fl (7.5-11.1); PLATELET COUNT 188 K/MM3 (134-434); RBC 4.39 M/mm3 (3.60-5.2); RDW 14.6 % (11.6-15.6); WHITE BLOOD COUNT 7.2 K/mm3 (4.0-10.0)
[2019-03-05 12:45] LABS: ALBUMIN 3.1 g/dl (3.4-5.0); BILIRUBIN,TOTAL 0.3 mg/dL (0.2-1); BLOOD UREA NITROGEN 22.2 mg/dL (7-18); CALCIUM 8.7 mg/dL (8.5-10.1); CREATININE 0.8 mg/dL (0.55-1.3); POTASSIUM 4.1 mmol/L (3.5-5.1); TOT PROT 6.4 g/dl (6.4-8.2)
[2019-03-05] MEDS: THIAMINE HCL 100 MG TABLET (FP) PO SCH (21:34)
[2019-03-05] MEDS ORDERED: SUVOREXANT 10 MG TABLET PO PRN (22:00)
[2019-03-06] MEDS: diazePAM 5 MG TABLET PO SCH ×2 (05:58→17:49)
--- NOTE | 2019-03-06 09:57 | PN ---
S CIWA - CIWA Score Nausea/Vomitin Muscle Tremors: 2 Anxiety: 2 Agitation: 2 Paroxysmal Sweats: No Perspiration Orientation: 0-Oriented Tacttile Disturbances: 1-Very Mild Itch/Numbness Auditory Disturbances: 0-None Visual Disturbances: 0-None Headache: 1-Very Mild CIWA-Ar Total Score: 10 BHS COWS - Scale Resting Pulse: 1= [place] 81-100 Sweatin= No chills or Flushing Restless Observation: 1= Difficult to Sit Still Pupil Size: 1= Pupils >than Normal Bone or Joint Aches: 1= Mild Discomfort Runny Nose/ Eye Tearin= Nasal Congestion GI Upset > 30mins: 1= Stomach Cramp Tremor Observation of Outstretched Hands: 1= Tremor [place], Not Seen Yawning Observation: 1= 1-2x During Session Anxiety or Irritability: 2=Irritable/Anxious Goose Flesh Skin: 0=Smooth Skin COWS Score: 10 S Progress Note (SOAP) Subjective: alert,irritable,anxious,interrupted sleep,pain in the body and back Objective: 03/06/19 09:54 Vital Signs Temperature 98.1 F 03/06/19 09:16 Pulse Rate 93 H 03/06/19 09:16 Respiratory Rate 18 03/06/19 09:16 Blood Pressure 137/80 03/06/19 09:16 O2 Sat by Pulse Oximetry (%) Laboratory Last Values WBC 7.2 K/mm3 (4.0-10.0) 03/05/19 09:00 RBC 4.39 M/mm3 (3.60-5.2) 03/05/19 09:00 Hgb 13.2 GM/dL (10.7-15.3) 03/05/19 09:00 Hct 41.3 % (32.4-45.2) 03/05/19 09:00 MCV 94.0 fl (80-96) 03/05/19 09:00 MCH 29.9 pg (25.7-33.7) 03/05/19 09:00 MCHC 31.9 g/dl (32.0-36.0) L 03/05/19 09:00 RDW 14.6 % (11.6-15.6) 03/05/19 09:00 Plt Count 188 K/MM3 (134-434) 03/05/19 09:00 MPV 10.4 fl (7.5-11.1) 03/05/19 09:00 Sodium 142 mmol/L (136-145) 03/05/19 09:00 Potassium 4.1 mmol/L (3.5-5.1) 03/05/19 09:00 Chloride 107 mmol/L (98-107) 03/05/19 09:00 Carbon Dioxide 28 mmol/L (21-32) 03/05/19 09:00 Anion Gap 7 MMOL/L (8-16) L 03/05/19 09:00 BUN 22.2 mg/dL (7-18) H 03/05/19 09:00 Creatinine 0.8 mg/dL (0.55-1.3) 03/05/19 09:00 Est GFR (CKD-EPI)AfAm 95.52 03/05/19 09:00 Est GFR (CKD-EPI)NonAf 82.42 03/05/19 09:00 Random Glucose 65 mg/dL (74-106) L 03/05/19 09:00 Calcium 8.7 mg/dL (8.5-10.1) 03/05/19 09:00 Total Bilirubin 0.3 mg/dL (0.2-1) 03/05/19 09:00 AST 15 U/L (15-37) 03/05/19 09:00 ALT 9 U/L (13-61) L 03/05/19 09:00 Alkaline Phosphatase 91 U/L (45-117) 03/05/19 09:00 Total Protein 6.4 g/dl (6.4-8.2) 03/05/19 09:00 Albumin 3.1 g/dl (3.4-5.0) L 03/05/19 09:00 RPR Titer Nonreactive (NONREACTIVE) 03/05/19 09:00 Assessment: 03/06/19 09:55 withdrawal symptom Plan: continue detox methadone and valium regimen,initial glucose 65,bun 22.2, encourage fluid,repeat bgm in am
[2019-03-06] MEDS ORDERED: METHADONE HCL 10 MG TABLET (FOR DETOX USE ONLY) PO ONE (10:00)
[2019-03-06] MEDS: PRENATAL VITAMINS W/ FOLIC ACID TABLET (FP) PO SCH (10:31)
[2019-03-06] MEDS: THIAMINE HCL 100 MG TABLET (FP) PO SCH (22:36)
[2019-03-07] MEDS ORDERED: METHADONE HCL 5 MG TABLET (FOR DETOX USE ONLY) PO ONE (06:00)
[2019-03-07] MEDS ORDERED: diazePAM 5 MG TABLET PO ONE (06:00)
--- NOTE | 2019-03-07 09:10 | DS ---
[facility] Detox Discharge Summary Admission Date: 03/04/19 Discharge Date: 03/07/19 - History Present History: Alcohol Dependence, Cannabis Dependence, Cocaine Dependence, Opioid Dependence - Physical Exam Results Vital Signs: Vital Signs Temperature 97.7 F 03/07/19 06:42 Pulse Rate 82 03/07/19 06:42 Respiratory Rate 18 03/07/19 06:42 Blood Pressure 134/87 03/07/19 06:42 O2 Sat by Pulse Oximetry (%) Pertinent Admission Physical Exam Findings: pt arrived in withdrawals Laboratory Tests 03/05/19 03/05/19 03/05/19 09:00 09:00 09:00 WBC 7.2 RBC 4.39 Hgb 13.2 Hct 41.3 MCV 94.0 MCH 29.9 MCHC 31.9 L RDW 14.6 Plt Count 188 MPV 10.4 Sodium 142 Potassium 4.1 Chloride 107 Carbon Dioxide 28 Anion Gap 7 L BUN 22.2 H Creatinine 0.8 Est GFR (CKD-EPI)AfAm 95.52 Est GFR (CKD-EPI)NonAf 82.42 Random Glucose 65 L Calcium 8.7 Total Bilirubin 0.3 AST 15 ALT 9 L Alkaline Phosphatase 91 Total Protein 6.4 Albumin 3.1 L RPR Titer Nonreactive today pt is aaox3 ambulating no acute distress no s/s of withdrawals - Treatment Hospital Course: Detox Protocol Followed, Detoxed Safely, Responded well, Discharged Condition Good, Rehab Referral Accepted Patient has Accepted a Rehab Referral to: referred to [facility] rehab - Medication Discharge Medications: Ambulatory Orders Pregabalin [Lyrica -] 50 mg PO BID 03/04/19 - Diagnosis (1) Alcohol dependence with uncomplicated withdrawal Current Visit: Yes Status: Chronic (2) Cannabis dependence Current Visit: Yes Status: Chronic (3) Cocaine dependence Current Visit: Yes Status: Chronic Qualifiers: Substance use status: uncomplicated Qualified Code(s): F14.20 - Cocaine dependence, uncomplicated (4) Opioid dependence with withdrawal Current Visit: Yes Status: Chronic (5) Substance induced mood disorder Current Visit: Yes Status: Acute (6) Substance-induced sleep disorder Current Visit: Yes Status: Acute (7) Asthma Current Visit: Yes Status: Chronic Qualifiers: Asthma severity: mild Asthma persistence: unspecified Asthma complication type: unspecified Qualified Code(s): J45.909 - Unspecified asthma , uncomplicated (8) Nicotine dependence, uncomplicated Current Visit: Yes Status: Chronic Qualifiers: Nicotine product type: cigarettes Qualified Code(s): F17.210 - Nicotine dependence, cigarettes, uncomplicated (9) ADHD (attention deficit hyperactivity disorder) Current Visit: No Status: Acute (10) Cocaine dependence, uncomplicated Current Visit: Yes Status: Chronic (11) General paresis Current Visit: No Status: Chronic (12) Mood disorder Current Visit: No Status: Chronic (13) MDD (major depressive disorder) Current Visit: No Status: Ruled-out (14) Panic disorder Current Visit: No Status: Ruled-out - AMA Did Patient Leave Against Medical Advice: No
[2019-03-07 10:00] LABS: BLOOD UREA NITROGEN 14.6 mg/dL (7-18); CALCIUM 8.9 mg/dL (8.5-10.1); CREATININE 0.7 mg/dL (0.55-1.3); POTASSIUM 4.2 mmol/L (3.5-5.1)
[2019-03-07 13:53] VITALS: BP 113/64; PULSE 80; TEMP 98.2
== END 2019-03-07 14:20 | disposition other institution (70) | DRG 773 ==
LOC: YASAS 13:08 → Y6N 19:11
PROVIDERS: ADMIT Surgery; ATTEND Surgery
PROC: HZ2ZZZZ Detoxification Services for Substance Abuse Treatment (ICD-10-PCS; principal; 2019-03-04)
DX: F11.23 Opioid dependence with withdrawal (principal); F10.230 Alcohol dependence with withdrawal, uncomplicated; F14.20 Cocaine dependence, uncomplicated; F12.20 Cannabis dependence, uncomplicated; F17.210 Nicotine dependence, cigarettes, uncomplicated; F19.282 Other psychoactive substance dependence with psychoactive substance-induced sleep disorder; F19.24 Other psychoactive substance dependence with psychoactive substance-induced mood disorder; F90.9 Attention-deficit hyperactivity disorder, unspecified type; J45.909 Unspecified asthma, uncomplicated; Z59.0 Homelessness
CPT/HCPCS: 36415; 80048; 80053; 85027; 86593; 90732; G0009

== ENCOUNTER 2019-03-07 14:34 | Inpatient (IN) | payer OTHER | END 2019-03-12 13:14 | disposition left against medical advice (07) | LOC: YASAS 14:34 → Y3E 03-08 00:13 ==